=== PATIENT | male | born 1965 | race Caucasian/White ===

== ENCOUNTER 2022-04-26 07:38 | Outpatient (CLI) | payer OTHER, SELFPAY ==
[2022-04-26 08:34] LABS: Alanine Aminotransferase 26 U/L (6-50); Albumin Level 4.3 g/dL (3.5-5.1); Alkaline Phosphatase 55 U/L (38-126); Anion Gap 6 mmol/L (8-16); Aspartate Amino Transferase 23 U/L (17-59); Bilirubin,Total 0.4 mg/dL (0.2-1.3); Blood Urea Nitrogen 17 mg/dL (9-20); Carbon Dioxide 27 mmol/L (22-30); Chloride 106 mmol/L (98-107); Cholesterol 258 mg/dL (0-200); Estimated Glomerular Filt Rate > 60; Glucose 94 mg/dL (65-110); HDL Direct 40 mg/dL; Potassium 4.2 mmol/L (3.4-5.0); Sodium 139 mmol/L (137-145); Triglycerides 148 mg/dL (<150)
[2022-04-26 08:40] LABS: Hemoglobin A1C 5.1 % (<5.7)
[2022-04-26 08:45] LABS: LDL Cholesterol Direct 135 mg/dL
[2022-04-26 09:03] LABS: Prostate Specific Antigen 0.6 ng/mL (< OR = 4.0)
[2022-04-26 14:36] LABS: Vitamin D 25 Hydroxy 47.5 ng/mL
== END 2022-04-26 07:39 | disposition home or self-care (01) ==
LOC: ANHLAB 07:42
PROVIDERS: PCP Internal Medicine; Visit Provider Nurse Practitioner
DX: Z13.1 Encounter for screening for diabetes mellitus (principal); Z13.29 Encounter for screening for other suspected endocrine disorder; Z13.6 Encounter for screening for cardiovascular disorders; Z13.220 Encounter for screening for lipoid disorders; Z13.21 Encounter for screening for nutritional disorder; Z12.5 Encounter for screening for malignant neoplasm of prostate
CPT/HCPCS: 36415; 80053; 80061; 82306; 83036; 84153; 84443; G0103

== ENCOUNTER 2025-04-29 09:46 | Outpatient (CLI) | payer OTHER, SELFPAY ==
--- OUTSIDE RECORDS SUMMARY | 2025-04-29 09:53 | XMS_ITS | Encounter Summary ---
Author Organization [facility] Address [address] [place] [address] Phone Care Team Providers Care Grinder Carbon Plant Name Role Phone Cali Engel MOTORCYCLE REPAIRER Primary Care Provider [phone] Encounter Details Date Type Department Care Team (Late st Contact Info) Description 02/20/2022 Telephone [facility] Surgery [address] [place] [address] José Casanova Social History Tobacco Use Types Packs/Day Years Used Date Smoking Tobacco: Every Day Smokeless Tobacco: Never Sex and Gender Information Value Date Recorded Sex Assigned at Not on file 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
--- OUTSIDE RECORDS SUMMARY | 2025-04-29 09:53 | XMS_ITS | Clinical Summary ---
Author Organization [facility] [place] Address [address] [place] [address] Care Team Providers Care Kraft Mill Operator Name Role Phone Cali Engel NP Primary Care Provider [phone] Allergies No known active allergies Medications No known medications Active Problems Problem Noted Date Diagnosed Date Closed fracture of nasal bone 09/04/2015 Closed fracture of rib of left side 09/04/2015 Closed wedge compression fracture of lumbar vert ebra 09/04/2015 Cyst of spleen 09/04/2015 Diaphragmatic hernia without obstruction or gang mallorie 09/04/2015 Fracture of other parts of neck, initial encount er 09/04/2015 Other specified diseases of gallbladder 09/04/20 15 Pneumothorax 09/04/2015 Solitary pulmonary nodule 09/04/2015 Injury 09/01/2015 Surgical History Surgery Date Site/Laterality Comments TONSILECTOMY, ADENOIDECTOMY, BILATERAL MYRINGOTOMY AND TUBES KNEE SURGERY 10/20/1981 - 10/19/1982 Medical History Medical History Date Comments Melanoma of neck (HCC) Social History Tobacco Use Types Packs/Day Years Used Date Smoking Tobacco: Every Day Smokeless Tobacco: Never Sex and Gender Information Value Date Recorded Sex Assigned at Not on file 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 Gender Identity Not on file Sexual Orientation Not on file Obstetrics History Last Filed Vital Signs Vital Sign Reading Time Taken Comments Blood Pressure - - Pulse - - Temperature - - Respiratory Rate - - Oxygen Saturation - - Inhaled Oxygen Concentration - - Weight 74.8 kg (165 lb) 01/21/2022 4:07 PM CDT Height 175.3 cm (5' 9) 01/21/2022 4:07 PM CDT Body Mass Index 24.37 01/21/2022 4:07 PM CDT Plan of Treatment Health Maintenance Due Date Last Done Comments Colon Cancer Screening-Colonoscopy 1967 Depression Screening 1967 Hepatitis C Screening 1967 Prostate Cancer Screening-PSA 1967 Hepatitis B Screening 1985 Regular Well Visit/Exam 18-64 1985 Pneumococcal vaccine <65 (1 of 2 - PCV) 1986 Zoster Vaccine (1 of 2) 2017 Covid-19 Vaccine (5 - 2023-2 5 season) 2024 07/08/2022, 09/24/2021, 02/20/2021, Additional history exists Influenza Vaccine (Season Ended) 2025 09/01/20 15 DTaP/Tdap/Td Vaccine (2 - Td or Tdap) 09/01/2025 09/01/2015 Insurance [facility] Care Teams Kraft Mill Operator Relationship Specialty Start Date End Date Cali Engel NP PCP - General Nurse Practitioner 01/08/22
--- OUTSIDE RECORDS SUMMARY | 2025-04-29 09:53 | XMS_ITS | Referral Summary ---
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
[2025-04-29 10:42] LABS: Hematocrit 45.9 % (42.0-52.0); Hemoglobin 15.4 g/dL (14.0-18.0); Mean Corpuscular HGB Conc 33.6 g/dl (32-36); Mean Corpuscular Hemoglobin 31.8 pg (26-34); Mean Corpuscular Volume 94.6 fl (80-100); Platelet Count Result 200 k/mm3 (150-375); Red Blood Count 4.85 M/mm3 (4.6-6.20); White Blood Count 10.5 K/mm3 (4.5-10.0)
[2025-04-29 11:04] LABS: Alanine Aminotransferase 28 U/L (6-50); Albumin Level 4.4 g/dL (3.5-5.1); Alkaline Phosphatase 46 U/L (38-126); Anion Gap 10 mmol/L (4-12); Aspartate Amino Transferase 32 U/L (17-59); Bilirubin,Total 0.6 mg/dL (0.2-1.3); Blood Urea Nitrogen 17 mg/dL (9-20); Calcium 9.4 mg/dL (8.4-10.2); Carbon Dioxide 25 mmol/L (22-30); Chloride 106 mmol/L (98-107); Cholesterol 240 mg/dL (0-200); Estimated Glomerular Filt Rate > 60; Glucose 89 mg/dL (65-110); HDL Direct 45 mg/dL; Potassium 4.1 mmol/L (3.4-5.0); Sodium 141 mmol/L (137-145); Total Protein 7.4 g/dL (6.3-8.2); Triglycerides 150 mg/dL (<150)
[2025-04-29 11:39] LABS: Prostate Specific Antigen 0.6 ng/mL (< OR = 4.0)
== END 2025-04-29 09:47 | disposition home or self-care (01) ==
LOC: ANHLAB 09:49
PROVIDERS: PCP Nurse Practitioner Family; Visit Provider Nurse Practitioner Family
DX: Z13.228 Encounter for screening for other metabolic disorders (principal); Z12.5 Encounter for screening for malignant neoplasm of prostate; Z13.220 Encounter for screening for lipoid disorders; Z13.0 Encounter for screening for diseases of the blood and blood-forming organs and certain disorders involving the immune mechanism
CPT/HCPCS: 36415; 80053; 80061; 84153; 85027; G0103